=== PATIENT | female | born 1980 | race Caucasian/White ===

== ENCOUNTER 2016-08-16 19:29 | Emergency (ER) | payer MEDICAID ==
--- NOTE | 2016-08-21 08:22 | ER ---
ADMIT: 08/16/2016 RM/LOC: ER [facility] MR#: [id number] [address] [facility] [id number] [place], [place] [id number] [place] HERNANDEZ [address] [address] Emergency Room Report SEX: F AGE: 36 : 1980 DATE: 08/16/2016 A 36-year-old who fell on her outstretched arm today, comes in with complaints of elbow and wrist pain. See T-sheet for history and physical. X-ray of the elbow was negative. X-ray of the wrist was negative. The patient diagnosed with elbow pain, sprain. Placed in a sling and Ultram. Instructed to follow up in 3-4 days if not better. Ralf Garcia MD/ kim JOB #: [id number] CC: Jason De La Torre MD, Attending Physician Meghann Gongora, Family Physician
[2017-01-06] MEDS ORDERED: XANAX DPS0.25 MG PO (11:27)
[2017-01-06] MEDS ORDERED: SINGULAIR10 MG PO (11:27)
[2017-01-06] MEDS ORDERED: PROVENTIL HFA6.7 GM IH (11:27)
[2017-01-06] MEDS ORDERED: LEVAQUIN DPS750 MG PO (11:27)
[2017-01-06] MEDS ORDERED: DELTASONE DPS20 MG PO (11:28)
== END 2016-08-16 20:24 | disposition home or self-care (01) ==
LOC: ER 19:29
DX: S53.401A Unspecified sprain of right elbow, initial encounter (principal); M25.531 Pain in right wrist; E66.01 Morbid (severe) obesity due to excess calories; W19.XXXA Unspecified fall, initial encounter